=== PATIENT | male | born 1980 | race Caucasian/White ===

== ENCOUNTER 2018-02-01 09:52 | Emergency (ER) | payer MEDICAID, OTHER ==
[~2018-02-01] VITALS: Ht 172.7 cm; Wt 80.7 kg
[2018-02-01 09:59] VITALS: BP 166/99
--- NOTE | 2018-02-01 09:59 | NUR ---
PT AMBULATED TO BED 09
--- NOTE | 2018-02-01 10:01 | NUR ---
37 YO M TO ER WITH C/O PAIN/SWELLING TO RIGHT NARES [id number]---[id number] ANY INJURIES, ADMITS TO "POP PIMPLE" INSIDE RIGHT NARES --- DENIES INHALENT DRUG USE--- NO EPITAXIS. PT AWAKE, ALERT AND ORIENTED TO PERSON , PLACE, TIME AND EVENT. NO OTHER MEDICAL COMPLAINTS AT THIS TIME. PT DENIES AND CP, SOB, FEVER OR COUGH AT THIS TIME. LS CLEAR THROUGHOUT, BS ACTIVE X4, DENIES AND N/V/D. ER MD MADE AWARE. WILL CONTINUE TO MONITOR. PT POSITIONED FOR COMFORT. hx--kawasaki's, thrombocytopenia rx---none
[2018-02-01] MEDS ORDERED: NACL 0.9% 1,000 ML IV SCH (11:12)
[2018-02-01] MEDS ORDERED: cefTRIAXone 1,000 MG in DEXT 5% MINI-BAG PLUS 50 ML IV ONE (11:15)
[2018-02-01] MEDS ORDERED: KETOROLAC 30 MG/ML VIAL IVP ONE (11:15)
[2018-02-01] MEDS ORDERED: MORPHINE SULFATE 2 MG/ML SYR IVP ONE (11:15)
[2018-02-01] MEDS ORDERED: diphenhydrAMINE 50 MG/ML VIAL IVP ONE (11:15)
[2018-02-01] MEDS ORDERED: METOCLOPRAMIDE 10 MG/2 ML INJ VIAL IVP ONE (11:15)
[2018-02-01] MEDS ORDERED: VANCOMYCIN 1,000 MG in DEXTROSE 5% 250 ML IV ONE (11:35)
[2018-02-01] MEDS ORDERED: VANCOMYCIN 1,000 MG VIAL ONE (11:43)
[2018-02-01] MEDS ORDERED: IBUPROFEN 800 MG TAB PO ONE (12:20)
[2018-02-01 12:22] LABS: BASOPHILS % (AUTO) 0.5 % (0.0-2.0); EOSINOPHILS # (AUTO) 0.1 K/uL (0-0.4); EOSINOPHILS % (AUTO) 1.6 % (0.0-4.0); HEMATOCRIT 47.3 % (36-52); LYMPHOCYTES # (AUTO) 2.2 K/uL (2.0-11.5); MEAN CORPUSCULAR HEMOGLOBIN 31 pg (27-31); MEAN CORPUSCULAR HGB CONC 34 g/dL (33-37); MEAN CORPUSCULAR VOLUME 90.3 fL (80-94); MONOCYTES # (AUTO) 0.6 K/uL (0.8-1.0); MONOCYTES % (AUTO) 8.9 % (1.7-9.3); NEUTROPHILS # (AUTO) 4.1 K/uL (1.8-7.7); PLATELET COUNT (AUTO) 147 K/uL (140-450); RED BLOOD CELL COUNT(AUTO) 5.24 MIL/uL (4.20-6.10); RED CELL DISTRIBUTION WIDTH 13.3 % (11.6-13.7); WHITE BLOOD COUNT (AUTO) 7.1 K/uL (4.8-10.8)
[2018-02-01 12:38] LABS: ANION GAP 12.7 (8-16); CARBON DIOXIDE 28.7 mmol/L (21-32); CREATININE 0.9 mg/dL (0.7-1.3); POTASSIUM 4.4 mmol/L (3.5-5.1)
[2018-02-01 12:40] LABS: ALBUMIN 4.4 g/dL (3.4-5.0); TOTAL BILIRUBIN 0.5 mg/dL (0.0-1.0)
[2018-02-01 14:20] VITALS: BP 128/74
--- NOTE | 2018-02-01 14:20 | NUR ---
Patient discharged with v/s stable. Written and verbal after care instructions given and explained. Patient alert, oriented and verbalized understanding of instructions. Ambulatory with steady gait. All questions addressed prior to discharge. ID band removed. Patient advised to follow up with PMD. Rx of KEFLEX/BACTRIM/NORCO/MOTRIN/MUPIROCIN 2% given. Patient educated on indication of medication including possible reaction and side effects. Opportunity to ask questions provided and answered.
== END 2018-02-01 14:20 | disposition home or self-care (01) ==
LOC: MED 09:52
DX: L03.211 Cellulitis of face (principal); B95.62 Methicillin resistant Staphylococcus aureus infection as the cause of diseases classified elsewhere; Z91.02 Food additives allergy status
CPT/HCPCS: 36415; 80053; 85025; 96365; 99284; J3370